=== PATIENT | female | born 1995 | race Caucasian/White ===

== ENCOUNTER → 2018-01-18 | Outpatient (REF) | payer OTHER | LOC: M SFHCLERA 11:05 | DX: N39.0 Urinary tract infection, site not specified (principal) | CPT/HCPCS: 87186 ==

== ENCOUNTER → 2018-02-23 | Outpatient (REF) | payer OTHER | LOC: M SFHCLERA 11:53 | DX: J02.9 Acute pharyngitis, unspecified (principal) ==

== ENCOUNTER 2022-12-01 07:40 | Inpatient (IN) | payer OTHER ==
[~2022-12-01] VITALS: Ht 172.7 cm; Wt 94.3 kg
[2022-12-01] VITALS (36 sets, daily range): BP systolic 88–120; BP diastolic 53–78; O2SAT 99
[2022-12-01] MEDS ORDERED: PRENTAB9 PO (08:12)
[2022-12-01] MEDS ORDERED: URSO300C3 PO (08:12)
[2022-12-01] MEDS ORDERED: [UNRECOGNIZED DRUG - CODE] PO (08:13)
[2022-12-01] MEDS ORDERED: HOME MED LIST COMPLETE! XX SCH (08:20)
[2022-12-01] MEDS ORDERED: METHYLERGONOVINE MALEATE 0.2MG/ML 1ML VIAL IM PRN (08:40)
[2022-12-01] MEDS ORDERED: OXYTOCIN INJ 10UNITS/ML 1ML VIAL IM PRN (08:40)
[2022-12-01] MEDS ORDERED: LIDOCAINE 1% MDV 20ML VIAL INFIL PRN (08:40)
[2022-12-01] MEDS ORDERED: CARBOPROST TROMETHAMINE 250 MCG/ML AMP IM PRN (08:40)
[2022-12-01] MEDS ORDERED: OXYTOCIN DRIP 30 UNITS in IV 1 EA IV PRN ×6 (08:40)
[2022-12-01] MEDS ORDERED: TRANEXAMIC ACID INJection 1,000 MG in NS 100 ML IV PRN (08:40)
[2022-12-01] MEDS ORDERED: OXYTOCIN DRIP 30 UNITS in IV 1 EA IV SCH (08:40)
[2022-12-01 09:08] LABS: HEMATOCRIT 33.1 % (36.0-47.0); HEMOGLOBIN 11.3 g/dl (12.0-15.5); MEAN CORPUSCULAR HGB CONC 34.1 g/dl (32.0-36.5); MEAN CORPUSCULAR VOLUME 96.8 fl (80.0-96.0); PLATELET COUNT, AUTOMATED 175 10^3/uL (150-450); RED BLOOD COUNT 3.42 10^6/uL (4.00-5.40); WHITE BLOOD COUNT 9.6 10^3/uL (4.0-10.0)
[2022-12-01] MEDS: LR 1,000 ML IV SCH ×2 (09:27→14:40)
[2022-12-01] MEDS ORDERED: FENTANYL 2MCG/ML ROPIVACAINE 0.2% IN 0.9% NACL 100ML IVBAG As Ordered ONE (11:41)
[2022-12-01] MEDS ORDERED: diphenhydrAMINE 50MG/ML VIAL IV PRN (11:45)
[2022-12-01] MEDS ORDERED: LR 500 ML IV PRN (11:45)
[2022-12-01] MEDS ORDERED: FENTANYL/ROPIVACAINE/NACL BAG 100 ML EPIDURAL SCH (11:45)
[2022-12-01] MEDS ORDERED: NALOXONE INJ 0.4MG/1ML VIAL IV PRN (11:45)
[2022-12-01] MEDS ORDERED: ePHEDrine SULFATE 25 MG/5 ML(5MG/ML) SYRINGE IVP PRN (11:45)
[2022-12-01] MEDS ORDERED: EPIDURAL/PCA KEYS XX PRN (11:45)
[2022-12-01] MEDS ORDERED: ONDANSETRON 4MG 2ML VIAL IV PRN (11:45)
[2022-12-01] MEDS ORDERED: ANUSOL HC CREAM 30GM TOP PRN (17:15)
[2022-12-01] MEDS ORDERED: DIBUCAINE 1% OINTMENT 30GM TOP PRN (17:15)
[2022-12-01] MEDS ORDERED: MOM 30ML SUSPENSION UDC PO PRN (17:15)
[2022-12-01] MEDS ORDERED: ACETAMINOPHEN 500 MG TAB PO PRN (17:15)
[2022-12-01] MEDS ORDERED: RHOGAM 300MCG (1500IU) INJ IM SCH (17:15)
[2022-12-01] MEDS: IBUPROFEN 800 MG TAB PO PRN (21:02)
[2022-12-01] MEDS: DOCUSATE SODIUM 100MG CAPSULE PO PRN (21:05)
[2022-12-02] MEDS: IBUPROFEN 800 MG TAB PO PRN ×2 (03:20→14:34)
[2022-12-02 06:00] VITALS: BP 100/57; O2SAT 98
[2022-12-02] MEDS ORDERED: PRENATAL VITAMINS CHEWABLE TABLET PO SCH (09:00)
[2022-12-02] MEDS: DOCUSATE SODIUM 100MG CAPSULE PO PRN (14:38)
[2022-12-03] MEDS ORDERED: MEASLES,MUMPS,RUBELLA VACCINE INJ (MMR-II) SC.IMMUN ONE (09:00)
== END 2022-12-02 19:49 | disposition home or self-care (01) | DRG 805 ==
LOC: M LDI 07:40 → M OBS 20:13
PROVIDERS: ADMIT Obstetrics & Gynecology; ATTEND Obstetrics & Gynecology
PROC: 10E0XZZ Delivery of Products of Conception, External Approach (ICD-10-PCS; principal; 2022-12-01)
PROC: 0KQM0ZZ Repair Perineum Muscle, Open Approach (ICD-10-PCS; 2022-12-01)
PROC: 10907ZC Drainage of Amniotic Fluid, Therapeutic from Products of Conception, Via Natural or Artificial Opening (ICD-10-PCS; 2022-12-01)
PROC: 3E033VJ Introduction of Other Hormone into Peripheral Vein, Percutaneous Approach (ICD-10-PCS; 2022-12-01)
PROC: 3E0P7VZ Introduction of Hormone into Female Reproductive, Via Natural or Artificial Opening (ICD-10-PCS; 2022-12-01)
DX: O26.62 Liver and biliary tract disorders in childbirth (principal); Z37.0 Single live birth; K83.1 Obstruction of bile duct; Z3A.39 39 weeks gestation of pregnancy; O70.1 Second degree perineal laceration during delivery; O69.82X0 Labor and delivery complicated by other cord entanglement, without compression, not applicable or unspecified

== ENCOUNTER → 2024-09-07 | Outpatient (REF) | payer OTHER ==
[~2024-09-07] MED LIST: PRENTAB9 PO; URSO300C3 PO; [UNRECOGNIZED DRUG - CODE] PO
[2024-09-07 13:36] LABS: APPEARANCE, URINE HAZY (CLEAR); BACTERIA, URINE AUTO 1+ (NEGATIVE); BILIRUBIN, URINE AUTO NEGATIVE (NEGATIVE); BLOOD, URINE BLOOD NEGATIVE (NEGATIVE); COLOR, URINE YELLOW (YELLOW); GLUCOSE, URINE (UA) AUTO NEGATIVE (NEGATIVE); KETONE, URINE AUTO NEGATIVE (NEGATIVE); LEUKOCYTE ESTERASE, URINE AUTO 3+ (NEGATIVE); MUCUS, URINE SMALL (NEGATIVE); NITRITE, URINE AUTO NEGATIVE (NEGATIVE); PROTEIN, URINE AUTO NEGATIVE (NEGATIVE); RBC, URINE AUTO 2 /HPF (0-3); SPECIFIC GRAVITY URINE AUTO 1.016 (1.002-1.035); SQUAMOUS EPITHELIAL CELL UR AU 2 /HPF (0-6); UROBILINOGEN, URINE AUTO 0.2 mg/dL (0.0-2.0); WBC, URINE AUTO 33 /HPF (0-3)
== END ==
LOC: M SMT 13:09
PROVIDERS: ATTEND Specialist
DX: N32.81 Overactive bladder (principal)

== ENCOUNTER → 2024-12-29 | Outpatient (CLI) | payer OTHER | LOC: M RAD 11:10 | PROVIDERS: ATTEND Obstetrics & Gynecology | DX: O26.843 Uterine size-date discrepancy, third trimester (principal) ==

== ENCOUNTER → 2024-12-30 | Outpatient (REF) | payer OTHER | LOC: M SFHCWAGY 09:49 | PROVIDERS: ATTEND Specialist | DX: Z34.83 Encounter for supervision of other normal pregnancy, third trimester (principal) ==

== ENCOUNTER 2025-01-07 15:31 | Outpatient (CLI) | payer OTHER ==
[~2025-01-07] VITALS: Ht 172.7 cm; Wt 93.1 kg
[2025-01-07] MEDS ORDERED: SERT-141 PO (15:47)
[2025-01-07] MEDS ORDERED: MAGN100T PO (15:47)
[2025-01-07] MEDS ORDERED: HOME MED LIST COMPLETE! XX SCH (15:50)
[2025-01-07 15:51] VITALS: BP 103/58; O2SAT 98
[2025-01-07 16:55] VITALS: BP 104/57
== END 2025-01-07 17:32 | disposition home or self-care (01) ==
LOC: M LDO 15:31
PROVIDERS: ATTEND Obstetrics & Gynecology
DX: O47.1 False labor at or after 37 completed weeks of gestation (principal); Z3A.37 37 weeks gestation of pregnancy; W01.0XXA Fall on same level from slipping, tripping and stumbling without subsequent striking against object, initial encounter; Y92.9 Unspecified place or not applicable; Y93.9 Activity, unspecified; Y99.9 Unspecified external cause status
CPT/HCPCS: 59025; 76815; G0463